=== PATIENT | male | born 2000 | race Caucasian/White ===

== ENCOUNTER 2022-10-19 15:49 | Emergency (ER) | payer OTHER ==
[~2022-10-19] VITALS: Ht 195.6 cm; Wt 124.0 kg
[2022-10-19] MEDS ORDERED: ACET-683 PO (16:08)
[2022-10-19] MEDS ORDERED: diazePAM 10MG/2ML SYRINGE IM ONE (16:20)
[2022-10-19] MEDS ORDERED: MEDR4PAK PO (17:43)
[2022-10-19] MEDS ORDERED: VALI5TAB PO (17:44)
[2022-10-19 17:53] VITALS: BP 136/76
== END 2022-10-19 17:56 | disposition home or self-care (01) ==
LOC: M ED 15:49
DX: M51.26 Other intervertebral disc displacement, lumbar region (principal); M51.27 Other intervertebral disc displacement, lumbosacral region; J30.89 Other allergic rhinitis
CPT/HCPCS: 72128; 72131; 72192; 96372; 99283; J3360